=== PATIENT | male | born 1945 | race Caucasian/White ===

== ENCOUNTER 2018-09-01 12:18 | Emergency (ER) | payer MEDICARE, BC ==
[2018-09-01] MEDS: ONDANSETRON (ODT) 4 MG TAB ODT (13:10)
[2018-09-01] MEDS: HYDROCODONE/APAP (10/325) TAB PO (13:10)
== END 2018-09-01 14:05 | disposition home or self-care (01) ==
LOC: FTE 12:18
DX: S42.035A Nondisplaced fracture of lateral end of left clavicle, initial encounter for closed fracture (principal); I10 Essential (primary) hypertension; V43.52XA Car driver injured in collision with other type car in traffic accident, initial encounter
CPT/HCPCS: 73030; 99283-25